=== PATIENT | female | born 1980 | race Two or more races ===

== ENCOUNTER 2024-01-02 09:52 | Observation (INO) | payer MEDICAID ==
[2024-01-02 11:47] LABS: Alanine Aminotransferase 29 U/L (7-40); Albumin 3.8 g/dL (3.2-4.8); Alkaline Phosphatase 71 U/L (46-116); Anion Gap 6 (5-15); Aspartate Aminotransferase 23 U/L (13-40); BUN/Creatinine Ratio 16.3 (10.0-20.0); Bilirubin, Total 0.4 mg/dL (0.2-1.0); Blood Urea Nitrogen 8 mg/dL (9-23); Calcium 9.1 mg/dL (8.7-10.4); Carbon Dioxide 25 mmol/L (20-30); Chloride 106 mmol/L (98-107); Glucose 68 mg/dL (74-106); Potassium 3.6 mmol/L (3.5-5.1); Sodium 137 mmol/L (136-145); Total Protein 6.2 g/dL (5.7-8.2); Uric Acid 3.2 mg/dL (3.1-7.8)
[2024-01-02] MEDS ORDERED: URSO300C2 PO (13:35)
== END 2024-01-02 12:43 | disposition home or self-care (01) ==
LOC: UNDOADMOB 09:52 → LDRP 09:52
PROVIDERS: ADMIT Obstetrics & Gynecology; ATTEND Obstetrics & Gynecology
DX: O26.892 Other specified pregnancy related conditions, second trimester (principal); L29.9 Pruritus, unspecified; Z3A.28 28 weeks gestation of pregnancy
CPT/HCPCS: 36415; 59025; 80053; 81002; 84550; 94760; G0378

== ENCOUNTER 2024-01-09 08:03 | Observation (INO) | payer MEDICAID ==
[~2024-01-09 08:03] MED LIST: URSO300C2 PO
[2024-01-09] MEDS ORDERED: ASPI-543 PO (08:29)
[2024-01-09] MEDS ORDERED: PREN-96 PO (08:29)
== END 2024-01-09 11:00 | disposition home or self-care (01) ==
LOC: UNDOADMOB 08:03 → LDRP 08:03 → UNDODISOB 11:00
PROVIDERS: ADMIT Obstetrics & Gynecology; ATTEND Obstetrics & Gynecology
DX: O26.643 Intrahepatic cholestasis of pregnancy, third trimester (principal); K83.1 Obstruction of bile duct; Z3A.29 29 weeks gestation of pregnancy
CPT/HCPCS: 59025; 81002; 94760; G0378

== ENCOUNTER 2024-01-12 08:57 | Observation (INO) | payer MEDICAID ==
[~2024-01-12 08:57] MED LIST changes: +ASPI-543 PO; +PREN-96 PO
== END 2024-01-12 10:15 | disposition home or self-care (01) ==
LOC: UNDOADMOB 08:57 → LDRP 08:57
PROVIDERS: ADMIT Obstetrics & Gynecology; ATTEND Obstetrics & Gynecology
DX: O26.643 Intrahepatic cholestasis of pregnancy, third trimester (principal); K83.1 Obstruction of bile duct; Z3A.29 29 weeks gestation of pregnancy
CPT/HCPCS: 59025; 81002; G0378

== ENCOUNTER 2024-01-16 09:48 | Observation (INO) | payer MEDICAID | END 2024-01-16 11:00 | disposition home or self-care (01) | LOC: LDRP 09:48 → UNDOADMOB 09:48 → LDRP 09:51 | PROVIDERS: ADMIT Obstetrics & Gynecology; ATTEND Obstetrics & Gynecology | DX: O26.893 Other specified pregnancy related conditions, third trimester (principal); L29.9 Pruritus, unspecified; O21.2 Late vomiting of pregnancy; Z3A.30 30 weeks gestation of pregnancy | CPT/HCPCS: 59025; 76818; 81002; 94760; G0378 ==

== ENCOUNTER 2024-03-26 09:12 | Observation (INO) | payer MEDICAID ==
[~2024-03-26] VITALS: Ht 165.1 cm; Wt 68.0 kg
[2024-03-26 10:36] LABS: Fern Testing Negative
== END 2024-03-26 10:46 | disposition home or self-care (01) ==
LOC: LDRP 09:12
PROVIDERS: ADMIT Obstetrics & Gynecology; ATTEND Obstetrics & Gynecology
DX: O48.0 Post-term pregnancy (principal); Z3A.40 40 weeks gestation of pregnancy
CPT/HCPCS: 59025; 76818; 81002; 94760; G0378; Q0114

== ENCOUNTER 2024-03-28 08:43 | Observation (INO) | payer MEDICAID ==
[2024-03-28 11:15] LABS: Basophils # (auto) 0 10 ^3/uL (0-0.2); Basophils % (auto) 0.3 % (0.0-2.0); Eosinophils # (auto) 0 10 ^3/uL (0-0.8); Eosinophils % (auto) 0.2 % (0.0-7.0); Hematocrit 37.9 % (36.0-46.0); Hemoglobin 12.7 g/dL (12.2-16.2); Lymphocytes # (auto) 1.2 10 ^3/uL (0.4-5.4); Lymphocytes % (auto) 19.7 % (10.0-50.0); Mean Corpuscular Hemoglobin 32.2 pg (28.0-32.0); Mean Corpuscular Hgb Conc. 33.4 g/dL (32.0-36.0); Mean Corpuscular Volume 96.3 fL (80.0-100.0); Monocytes # (auto) 0.4 10 ^3/uL (0-1.3); Monocytes % (auto) 6.3 % (0.0-12.0); Neutrophils # (auto) 4.4 10 ^3/uL (1.6-8.6); Neutrophils % (auto) 73.5 % (37.0-80.0); Platelet Count (auto) 171 10^3/uL (140-450); Red Blood Cells 3.94 10^6/uL (4.0-5.20); Red Cell Distribution Width 14.7 % (11.8-14.3); White Blood Cell 5.9 10^3/uL (4.4-10.8)
[2024-03-28 11:35] LABS: Alanine Aminotransferase 23 U/L (7-40); Albumin 3.7 g/dL (3.2-4.8); Alkaline Phosphatase 158 U/L (46-116); Anion Gap 6 (5-15); Aspartate Aminotransferase 23 U/L (13-40); BUN/Creatinine Ratio 12.7 (10.0-20.0); Bilirubin, Total 0.6 mg/dL (0.2-1.0); Blood Urea Nitrogen 7 mg/dL (9-23); Calcium 8.9 mg/dL (8.7-10.4); Carbon Dioxide 24 mmol/L (20-30); Chloride 106 mmol/L (98-107); Glucose 67 mg/dL (74-106); INR 0.91 (0.9-1.15); Potassium 3.6 mmol/L (3.5-5.1); Prothrombin Time 9.7 sec (9.3-11.8); Sodium 136 mmol/L (136-145); Uric Acid 4.1 mg/dL (3.1-7.8)
[2024-03-28 11:53] LABS: Protein, Urine 32.5 mg/dL (0.0-11.9)
[2024-03-28 11:56] LABS: Creatinine, Urine 121.72 mg/dL (30.0-125.0); Urine Protein/Creatinine Ratio 0.27
[2024-03-28 11:57] LABS: Amphetamine Screen, Urine Neg (NEGATIVE)
[2024-03-28 11:59] LABS: Barbiturate Scree,Urine Neg (NEGATIVE); Benzodiazephine Screen, Urine Neg (NEGATIVE); Cannabinoid Screen, Urine Neg (NEGATIVE); Cocaine Screen, Urine Neg (NEGATIVE); Opiate Scree,Urine Neg (NEGATIVE); Phencyclidine Screen, Urine Neg (NEGATIVE)
[2024-03-28 12:16] LABS: Urine Bacteria FEW /hpf (None Seen); Urine Blood Negative /uL (Negative); Urine Clarity Turbid (Clear); Urine Color Yellow (Yellow); Urine Mucus FEW (None Seen); Urine Protein, UAD TRACE (Negative); Urine Specific Gravity 1.017 (1.001-1.035); Urine Urobilinogen Normal (Negative); Urine WBC 7 /hpf (0 - 5)
== END 2024-03-28 13:05 | disposition home or self-care (01) ==
LOC: LDRP 08:43
PROVIDERS: ADMIT Obstetrics & Gynecology; ATTEND Obstetrics & Gynecology
DX: O48.0 Post-term pregnancy (principal); Z3A.40 40 weeks gestation of pregnancy; Z79.899 Other long term (current) drug therapy
CPT/HCPCS: 36415; 59025; 76818; 80053; 80307; 81001; 81002; 82570; 84156; 84550; 85025; 85610; 85730; 94760; G0378

== ENCOUNTER 2024-03-28 20:06 | Inpatient (IN) | payer MEDICAID ==
[~2024-03-28] VITALS: Ht 160 cm; Wt 65.8 kg
[2024-03-28 20:06] VITALS: BP 99/63; PULSE 86; RESP 16; TEMP 97.7; O2SAT 98
[2024-03-28] MEDS ORDERED: BUTORPHANOL TARTRATE 2 MG/1 ML VIAL IV PRN ×2 (20:15)
[2024-03-28] MEDS ORDERED: miSOPROStol 50 MCG per PRE-CUT 1/2 TAB PO PRN (20:15)
[2024-03-28] MEDS ORDERED: LIDOCAINE 2%HCL (LOCAL ANESTH.) INJ 20ML MDV IJ PRN (20:15)
[2024-03-28 20:57] LABS: Basophils # (auto) 0 10 ^3/uL (0-0.2); Basophils % (auto) 0.3 % (0.0-2.0); Eosinophils # (auto) 0 10 ^3/uL (0-0.8); Eosinophils % (auto) 0.5 % (0.0-7.0); Hemoglobin 12.8 g/dL (12.2-16.2); Lymphocytes # (auto) 1.4 10 ^3/uL (0.4-5.4); Lymphocytes % (auto) 24.1 % (10.0-50.0); Mean Corpuscular Hemoglobin 32.3 pg (28.0-32.0); Mean Corpuscular Hgb Conc. 33.7 g/dL (32.0-36.0); Mean Corpuscular Volume 95.8 fL (80.0-100.0); Monocytes # (auto) 0.5 10 ^3/uL (0-1.3); Monocytes % (auto) 8.8 % (0.0-12.0); Neutrophils % (auto) 66.3 % (37.0-80.0); Nucleated Red Blood Cells % 0.1 %; Platelet Count (auto) 179 10^3/uL (140-450); Red Blood Cells 3.97 10^6/uL (4.0-5.20); Red Cell Distribution Width 14.7 % (11.8-14.3)
[2024-03-28 21:09] LABS: Alanine Aminotransferase 23 U/L (7-40); Albumin 3.7 g/dL (3.2-4.8); Alkaline Phosphatase 168 U/L (46-116); Anion Gap 9 (5-15); Aspartate Aminotransferase 20 U/L (13-40); BUN/Creatinine Ratio 14.8 (10.0-20.0); Bilirubin, Total 0.5 mg/dL (0.2-1.0); Blood Urea Nitrogen 8 mg/dL (9-23); Carbon Dioxide 21 mmol/L (20-30); Chloride 108 mmol/L (98-107); Glucose 130 mg/dL (74-106); Potassium 3.5 mmol/L (3.5-5.1); Sodium 138 mmol/L (136-145); Total Protein 6.2 g/dL (5.7-8.2)
[2024-03-28 21:16] LABS: INR 0.89 (0.9-1.15); Partial Thromboplastin Time 25.9 SEC (24.5-34.5); Prothrombin Time 9.5 sec (9.3-11.8)
[2024-03-28 21:24] LABS: Urine Bacteria FEW /hpf (None Seen); Urine Blood Negative /uL (Negative); Urine Clarity Turbid (Clear); Urine Color Yellow (Yellow); Urine Protein, UAD 1+ (Negative); Urine Specific Gravity 1.014 (1.001-1.035); Urine Urobilinogen Normal (Negative); Urine WBC 7 /hpf (0 - 5)
[2024-03-28] MEDS: LACTATED RINGER'S 1,000 ML IV SCH (21:29)
[2024-03-28 21:36] LABS: Amphetamine Screen, Urine Neg (NEGATIVE); Barbiturate Scree,Urine Neg (NEGATIVE); Benzodiazephine Screen, Urine Neg (NEGATIVE); Cannabinoid Screen, Urine Neg (NEGATIVE); Cocaine Screen, Urine Neg (NEGATIVE); Opiate Scree,Urine Neg (NEGATIVE); Phencyclidine Screen, Urine Neg (NEGATIVE)
[2024-03-29] MEDS: LACT. RINGERS/OXYTOCIN 20UNITS 1,000 ML IV SCH (00:15)
[2024-03-29] MEDS: OXYTOCIN 10UNIT/ML 1ML VIAL IM ONE (00:15)
[2024-03-29] MEDS ORDERED: ONDANSETRON HCL 4 MG/2 ML VIAL IV PRN (00:15)
[2024-03-29] MEDS ORDERED: CARBOPROST TROMETHAMINE 250 MCG/1ML VIAL IM PRN ×2 (00:15→10:45)
[2024-03-29] MEDS ORDERED: diphenhdrAMINE HCL 50 MG/1 ML VL IV PRN (00:15)
[2024-03-29] MEDS: NALOXONE HCL 0.4 MG/ML VIAL IV ONE (07:45)
[2024-03-29] MEDS: fentaNYL CITRATE 100 MCG/2 ML VL IV ONE (08:09)
[2024-03-29] MEDS: ROPIVACAINE HCL 200 ML ONE (08:30)
[2024-03-29] MEDS: ePHEDrine SULFATE 50 MG/ML AMP IV ONE (08:47)
[2024-03-29] MEDS: LACT. RINGERS/OXYTOCIN 20UNITS 500 ML IV ONE ×2 (09:52→09:53)
[2024-03-29] MEDS: METHYLERGONOVINE MALEATE 0.2 MG/ML AMP IM ONE (09:53)
[2024-03-29] MEDS: miSOPROStol 100 mcg TAB PR PRN (09:53)
[2024-03-29] MEDS: miSOPROStol 100 mcg TAB SL PRN (09:54)
[2024-03-29] MEDS: WITCH HAZEL-GLYCERIN PAD TOP PRN (09:54)
[2024-03-29] MEDS: PHISODERM TOP SOLN 240ML BTL TOP PRN (09:54)
[2024-03-29] MEDS: DERMOPLAST 60ML BOTTLE TOP PRN (09:54)
[2024-03-29] MEDS: DIPHENOXYLATE W/ATROPINE 2.5 MG TAB PO SCH (10:00)
[2024-03-29] MEDS: CARBOPROST TROMETHAMINE 250 MCG/1ML VIAL IM ONE (10:14)
[2024-03-29] MEDS: DIPHENOXYLATE W/ATROPINE 2.5 MG TAB PO STA (10:19)
[2024-03-29] MEDS: CARBOPROST TROMETHAMINE 250 MCG/1ML VIAL IM STA (10:20)
[2024-03-29] MEDS: ceFAZolin 1GM/50ML 50 ML IV SCH (14:59)
[2024-03-29 15:02] VITALS: BP 95/49; PULSE 78; RESP 18; TEMP 97.7; O2SAT 95
[2024-03-29 18:58] VITALS: BP 91/51; PULSE 82; RESP 16; TEMP 97.8; O2SAT 96
[2024-03-29] MEDS: ACETAMINOPHEN 325 MG TAB PO PRN (19:22)
[2024-03-29 19:25] LABS: Basophils # (auto) 0 10 ^3/uL (0-0.2); Basophils % (auto) 0.2 % (0.0-2.0); Eosinophils # (auto) 0 10 ^3/uL (0-0.8); Eosinophils % (auto) 0.2 % (0.0-7.0); Hemoglobin 10.7 g/dL (12.2-16.2); Lymphocytes # (auto) 1.4 10 ^3/uL (0.4-5.4); Lymphocytes % (auto) 12.2 % (10.0-50.0); Mean Corpuscular Hemoglobin 32.5 pg (28.0-32.0); Mean Corpuscular Hgb Conc. 33.5 g/dL (32.0-36.0); Mean Corpuscular Volume 96.9 fL (80.0-100.0); Monocytes # (auto) 0.7 10 ^3/uL (0-1.3); Monocytes % (auto) 5.9 % (0.0-12.0); Neutrophils # (auto) 9.1 10 ^3/uL (1.6-8.6); Neutrophils % (auto) 81.5 % (37.0-80.0); Platelet Count (auto) 148 10^3/uL (140-450); Red Cell Distribution Width 14.9 % (11.8-14.3); White Blood Cell 11.2 10^3/uL (4.4-10.8)
[2024-03-29 23:15] VITALS: BP 102/60; PULSE 64; RESP 17; TEMP 97.9; O2SAT 97
[2024-03-30] MEDS: DOCUSATE SOD 100 MG CAP PO SCH (00:44)
[2024-03-30 02:27] VITALS: BP 95/52; PULSE 73; RESP 14; TEMP 98; O2SAT 96
[2024-03-30 03:00] VITALS: BP 95/52; PULSE 73; RESP 14; TEMP 98; O2SAT 96
[2024-03-30 06:06] LABS: RPR Non Reactive (Non Reactive)
[2024-03-30 07:30] VITALS: BP 91/54; PULSE 78; RESP 16; TEMP 97.7; O2SAT 98
[2024-03-30] MEDS: IBUPROFEN 600 MG TAB PO PRN (09:12)
[2024-03-30 10:30] VITALS: BP 98/60; PULSE 82; RESP 18; TEMP 97.9; O2SAT 99
[2024-03-30 13:41] VITALS: TEMP 98.3
== END 2024-03-30 13:41 | disposition home or self-care (01) | DRG 560 ==
LOC: LDRP 20:06
PROVIDERS: ADMIT Obstetrics & Gynecology; ATTEND Obstetrics & Gynecology
PROC: 10E0XZZ Delivery of Products of Conception, External Approach (ICD-10-PCS; principal; 2024-03-29)
PROC: 0UQMXZZ Repair Vulva, External Approach (ICD-10-PCS; 2024-03-29)
PROC: 3E0R3BZ Introduction of Anesthetic Agent into Spinal Canal, Percutaneous Approach (ICD-10-PCS; 2024-03-29)
PROC: 00HU33Z Insertion of Infusion Device into Spinal Canal, Percutaneous Approach (ICD-10-PCS; 2024-03-29)
DX: O48.0 Post-term pregnancy (principal); Z37.0 Single live birth; R71.0 Precipitous drop in hematocrit; O71.82 Other specified trauma to perineum and vulva; Z3A.40 40 weeks gestation of pregnancy
CPT/HCPCS: 36415; 59025; 59409; 62282; 80053; 80307; 81001; 85025; 85610; 85730; 86592; 86803; 86850; 86900; 86901; 94760; 94762; 96360; 96361; 96365; 96366; 96372; G0378; J2590